=== PATIENT | male | born 1945 | race Caucasian/White ===

== ENCOUNTER → 2017-02-25 | Outpatient (CLI) | payer MEDICARE ==
--- NOTE | 2017-02-28 10:01 | CARDEX ---
CARDIOPULMONARY EXERCISE REPORT Mr. Green performed a pulmonary stress test utilizing a step-exercise protocol monitoring several cardio-pulmonary parameters including gas-exchange. His overall aerobic capacity is only mildly reduced at 75% to 80%. His ventilatory response to exercise was characterized by mild oxygen de-saturation from 95% to 87% on room air and a mild reduction in ventilatory reserve at the end of sub-maximal exercise at 18%. He does have mild obstructive disease that could account for this. His ventilation perfusion ratios at rest and during exercise were normal. His cardio-vascular response was fairly normal. He experienced no chest pain, no light-headedness. He achieved 85% of his predicted maximum heart rate although that was at a sub-maximal level. His O2 pulse was a little low which could be an indication of de-conditioning although co-existent heart disease cannot be excluded completely. His O2 pulse, however, which is an indirect indicator of stroke volume, was normal at 90% and he had no detectable arrhythmia. His blood pressure at rest was normal at 120/84 and karis to 140 during exercise. IMPRESSION: In summary, Mr. Green has a mild reduction aerobic capacity with some mild pulmonary abnormalities characterized by mild oxygen de-saturation and a slight decrease in pulmonary reserve. These could account for the dyspnea that he is experiencing. A fairly rapid rise in heart rate with a mild decrease in O2 pulse may be an indication de-conditioning although strictly speaking, cardiac disease cannot be excluded. In light of the fact that he has stopped his regular routine of exercise, if clinically appropriate, resuming those activities to see whether or not symptoms do resolve might be helpful. If symptoms persistent with regular physical exercise over the next 3 to 6 months a follow up study might be helpful. Xu NICHOLS M.D. lt 02/28/17
== END ==
LOC: HRSP 12:31
PROVIDERS: ATTEND Internal Medicine
DX: J44.9 Chronic obstructive pulmonary disease, unspecified (principal); R06.02 Shortness of breath
CPT/HCPCS: 94621